=== PATIENT | female | born 1965 | race Caucasian/White ===

== ENCOUNTER → 2019-08-18 | Outpatient (CLI) | payer OTHER | END | disposition home or self-care (01) | LOC: CFH 13:30 | PROVIDERS: ATTEND Obstetrics & Gynecology | DX: Z12.31 Encounter for screening mammogram for malignant neoplasm of breast (principal) | CPT/HCPCS: 77063; 77067 ==

== ENCOUNTER 2019-09-18 12:48 | Outpatient (CLI) | payer OTHER | END 2019-09-18 23:59 | disposition home or self-care (01) | LOC: CFH 12:48 | PROVIDERS: ATTEND Obstetrics & Gynecology | DX: N60.01 Solitary cyst of right breast (principal); R92.2 Inconclusive mammogram; N64.89 Other specified disorders of breast | CPT/HCPCS: 76642; 77065 ==

== ENCOUNTER 2019-09-21 11:18 | Outpatient (CLI) | payer OTHER ==
[2019-09-21] MEDS ORDERED: GADOTERATE 10 MMOL/20 ML VIAL ONE (12:27)
== END 2019-09-21 23:59 | disposition home or self-care (01) ==
LOC: CFH 11:18
PROVIDERS: ATTEND Obstetrics & Gynecology
DX: N60.01 Solitary cyst of right breast (principal); N60.02 Solitary cyst of left breast
CPT/HCPCS: 77049; A9575; C8908; C8937

== ENCOUNTER → 2021-03-13 | Outpatient (CLI) | payer OTHER | END | disposition home or self-care (01) | LOC: CFH 11:50 | PROVIDERS: ATTEND Obstetrics & Gynecology | DX: Z12.31 Encounter for screening mammogram for malignant neoplasm of breast (principal) | CPT/HCPCS: 77063; 77067 ==